=== PATIENT | female | born 1960 | race Caucasian/White ===

== ENCOUNTER 2018-03-16 07:35 | Emergency (ER) | payer OTHER ==
[~2018-03-16] VITALS: Ht 152.4 cm; Wt 72.6 kg
== END 2018-03-16 13:03 | disposition home or self-care (01) ==
LOC: ER 07:35
DX: B34.9 Viral infection, unspecified (principal)

== ENCOUNTER 2019-06-14 10:50 | Emergency (ER) | payer OTHER ==
[~2019-06-14] VITALS: Ht 152.4 cm; Wt 68.0 kg
[2019-06-14] MEDS ORDERED: CIPRO500 MG PO (11:23)
[2019-06-14] MEDS ORDERED: ANALPRAM HC 2.530 GM RECTAL (11:23)
[2019-06-14] MEDS ORDERED: FLAGYL500MG PO (11:23)
== END 2019-06-14 11:37 | disposition home or self-care (01) ==
LOC: ER 10:50
DX: K64.4 Residual hemorrhoidal skin tags (principal)